=== PATIENT | male | born 1955 | race Caucasian/White ===

== ENCOUNTER 2017-06-16 09:50 | Emergency (ER) | payer OTHER ==
[~2017-06-16] VITALS: Ht 190.5 cm; Wt 129.3 kg
[~2017-06-16 09:50] MED LIST: BYDUREON2 MG SQ; CARVEDILOL12.5 MG PO; COREG25 MG PO; INVOKANA100 MG PO; KEPPRA 500 MG500 M2 PO; LISINOPRIL10 MG PO; LIVALO2 MG PO; METFORMIN HCL500 MG PO; MIDODRINE HCL 55 M1 PO; NEURONTIN 300300 M1 PO
[2017-06-16] MEDS ORDERED: CRESTOR5 MG PO (10:01)
[2017-06-16] MEDS ORDERED: TRULICITY0.75 MG/0. SUBQ (10:01)
[2017-06-16] MEDS ORDERED: MOBIC15 MG PO (10:02)
[2017-06-16] MEDS ORDERED: FARXIGA5 MG PO (10:02)
[2017-06-16] MEDS ORDERED: CYMBALTA30 MG PO (10:03)
[2017-06-16 10:45] LABS: HEMATOCRIT 46.8 % (42.0-52.0); MCH 32.5 pg (26.0-34.0); MCHC 34.3 g/dL (28.0-37.0); MCV 94.9 fL (80.0-100.0); RBC 4.93 mil/uL (4.50-6.00); RDW 13.3 % (10.5-14.5)
[2017-06-16 10:47] LABS: CALCIUM 9.3 mg/dL (8.5-10.1); CREATININE 0.9 mg/dL (0.7-1.3); POTASSIUM 4.4 mmol/L (3.5-5.1)
[2017-06-16 10:53] LABS: ALBUMIN 4.1 g/dL (3.4-5.0); TOTAL BILIRUBIN 0.6 mg/dL (<0.1-1.0); TOTAL PROTEIN 7.7 g/dL (6.4-8.2)
[2017-06-16 12:12] LABS: URINE BILIRUBIN NEGATIVE (Negative); URINE BLOOD NEGATIVE (Negative); URINE CLARITY CLEAR; URINE COLOR YELLOW; URINE GLUCOSE-RANDOM* 3+ (Negative); URINE KETONES NEGATIVE (Negative); URINE LEUKOCYTES-REFLEX NEGATIVE (Negative); URINE NITRITE-REFLEX NEGATIVE (Negative); URINE PROTEIN (DIPSTICK) NEGATIVE (Negative); URINE UROBILINOGEN 0.2 E.U./dl (0.2-1.0)
[2017-06-16 12:49] VITALS: BP 101/63
== END 2017-06-16 12:55 | disposition home or self-care (01) ==
LOC: ER 09:50
PROVIDERS: Emergency Medicine
DX: R10.9 Unspecified abdominal pain (principal); M54.5 Low back pain; E11.9 Type 2 diabetes mellitus without complications; G47.30 Sleep apnea, unspecified; Z87.442 Personal history of urinary calculi; Z91.040 Latex allergy status; Z88.8 Allergy status to other drugs, medicaments and biological substances

== ENCOUNTER 2018-04-17 18:55 | Emergency (ER) | payer OTHER ==
[~2018-04-17] VITALS: Ht 190.5 cm; Wt 127.0 kg
[~2018-04-17 18:55] MED LIST changes: +CRESTOR5 MG PO; +CYMBALTA30 MG PO; +FARXIGA5 MG PO; +MOBIC15 MG PO; +TRULICITY0.75 MG/0. SUBQ
[2018-04-17] MEDS ORDERED: METFORMIN HCL1000 M1 PO (19:11)
[2018-04-17] MEDS ORDERED: NORCO 5-325 TA1 EACH PO (20:02)
[2018-04-17 20:10] VITALS: BP 127/79
== END 2018-04-17 20:10 | disposition home or self-care (01) ==
LOC: ER 18:55
DX: S92.415A Nondisplaced fracture of proximal phalanx of left great toe, initial encounter for closed fracture (principal); S92.511A Displaced fracture of proximal phalanx of right lesser toe(s), initial encounter for closed fracture; E11.9 Type 2 diabetes mellitus without complications; G47.30 Sleep apnea, unspecified; Z91.041 Radiographic dye allergy status; Z87.891 Personal history of nicotine dependence; Z87.442 Personal history of urinary calculi; Z88.8 Allergy status to other drugs, medicaments and biological substances; W10.8XXA Fall (on) (from) other stairs and steps, initial encounter; Y93.89 Activity, other specified; Y92.098 Other place in other non-institutional residence as the place of occurrence of the external cause; Y99.8 Other external cause status

== ENCOUNTER → 2018-08-04 | Outpatient (CLI) | payer OTHER ==
[~2018-08-04] MED LIST changes: +METFORMIN HCL1000 M1 PO; +NORCO 5-325 TA1 EACH PO
== END ==
LOC: HYPER 08-02 08:15
DX: E11.621 Type 2 diabetes mellitus with foot ulcer (principal); L97.511 Non-pressure chronic ulcer of other part of right foot limited to breakdown of skin; E11.43 Type 2 diabetes mellitus with diabetic autonomic (poly)neuropathy; E78.5 Hyperlipidemia, unspecified; G47.33 Obstructive sleep apnea (adult) (pediatric); I10 Essential (primary) hypertension; I42.8 Other cardiomyopathies; M47.816 Spondylosis without myelopathy or radiculopathy, lumbar region; Z87.891 Personal history of nicotine dependence; Z79.84 Long term (current) use of oral hypoglycemic drugs; Z95.810 Presence of automatic (implantable) cardiac defibrillator

== ENCOUNTER → 2018-08-11 | Outpatient (CLI) | payer OTHER | LOC: HYPER 06:47 | DX: E11.621 Type 2 diabetes mellitus with foot ulcer (principal); L97.511 Non-pressure chronic ulcer of other part of right foot limited to breakdown of skin; E11.43 Type 2 diabetes mellitus with diabetic autonomic (poly)neuropathy; E78.5 Hyperlipidemia, unspecified; G47.33 Obstructive sleep apnea (adult) (pediatric); I10 Essential (primary) hypertension; I42.8 Other cardiomyopathies; M47.816 Spondylosis without myelopathy or radiculopathy, lumbar region; Z95.810 Presence of automatic (implantable) cardiac defibrillator; Z79.84 Long term (current) use of oral hypoglycemic drugs; Z87.891 Personal history of nicotine dependence ==

== ENCOUNTER → 2018-08-25 | Outpatient (CLI) | payer OTHER | LOC: HYPER 06:58 | DX: E11.621 Type 2 diabetes mellitus with foot ulcer (principal); L97.511 Non-pressure chronic ulcer of other part of right foot limited to breakdown of skin; E11.43 Type 2 diabetes mellitus with diabetic autonomic (poly)neuropathy; E78.5 Hyperlipidemia, unspecified; I10 Essential (primary) hypertension; I42.8 Other cardiomyopathies; G47.33 Obstructive sleep apnea (adult) (pediatric); M47.816 Spondylosis without myelopathy or radiculopathy, lumbar region; Z95.810 Presence of automatic (implantable) cardiac defibrillator; Z87.891 Personal history of nicotine dependence; Z79.84 Long term (current) use of oral hypoglycemic drugs ==

== ENCOUNTER → 2018-09-13 | Outpatient (CLI) | payer OTHER | LOC: HYPER 06:43 | DX: E11.621 Type 2 diabetes mellitus with foot ulcer (principal); L97.511 Non-pressure chronic ulcer of other part of right foot limited to breakdown of skin; E11.43 Type 2 diabetes mellitus with diabetic autonomic (poly)neuropathy; E78.5 Hyperlipidemia, unspecified; G47.33 Obstructive sleep apnea (adult) (pediatric); I10 Essential (primary) hypertension; I42.8 Other cardiomyopathies; M47.816 Spondylosis without myelopathy or radiculopathy, lumbar region; Z95.810 Presence of automatic (implantable) cardiac defibrillator; Z79.84 Long term (current) use of oral hypoglycemic drugs; Z87.891 Personal history of nicotine dependence ==

== ENCOUNTER → 2019-12-02 | Outpatient (CLI) | payer OTHER ==
[~2019-12-02] MED LIST changes: +CYMBALTA60 MG PO; +MULTIVITAMINS1 EAC7 PO
== END ==
LOC: LAB 08:00
PROVIDERS: ATTEND Student in an Organized Health Care Education/Training Program
DX: Z01.812 Encounter for preprocedural laboratory examination (principal); Z11.59 Encounter for screening for other viral diseases

== ENCOUNTER → 2019-12-07 | Outpatient (CLI) | payer OTHER ==
[~2019-12-07] VITALS: Ht 190.5 cm; Wt 121.6 kg
--- NOTE | 2019-12-09 18:06 | PATH ---
[facility] [place] [address] PATHOLOGY RPT PROCEDURE Name: ANAHI MARAVILLA Room #: REG [facility].#: [id number] Admission: 12/07/19 Date of : 53 Discharge: Report #: [id number] Path Case #: [id number] [facility] Accession Number: [id number] . 01 Material submitted: . PART A: colon - POLYP AT DESCENDING COLON. Modifiers: descending PART B: colon - POLYP AT SIGMOID COLON. Modifiers: sigmoid . 01 Clinical history: . None provided. . 02 Diagnosis: A. Polyp, at descending colon, endoscopic biopsy: - Tubular adenoma. - Negative for high-grade dysplasia. . B. Polyp, at sigmoid colon, endoscopic biopsy: - Hyperplastic polyp. - Negative for dysplasia. (IUV:tyra; 12/09/2019) QMS 12/09/2019 1256 Local . 02 Electronically signed: . Patricia De La Rosa MD, Pathologist NPI- [id number] . 01 Gross description: . A. Received in formalin labeled "Anahi Maravilla, polyp at descending colon" is a 0.6 x 0.4 x 0.1 cm aggregate of patricio-brown soft tissue fragments. The specimen is submitted entirely in A1. . B. Received in formalin labeled "Anahi Maravilla, polyp at sigmoid colon" is a 0.8 x 0.5 x 0.1 cm aggregate of patricio-brown soft tissue fragments. The specimen is submitted entirely in B1. ([facility]; 12/08/2019) [facility] 12/08/2019 1510 Local . 02 Pathologist provided ICD-10: D12.4, K63.5 . 02 CPT . 358698, 284370 Specimen Comment: A courtesy copy of this report has been sent to [phone] Specimen Comment: [phone] Specimen Comment: Report sent to / DR PATINO Performed at: [address] [place] [address] PATHOLOGY RPT PROCEDURE Name: ANAHI MARAVILLA Room #: REG [facility] Farrah#: [id number] Admission: 12/07/19 Date of : 53 Discharge: Report #: [id number] Path Case #: [id number] [address] [facility] [address], [place] [id number] MD Fausto Weeks MD Phone: [phone] Performed at: [address] [id number] MD Patricia De La Rosa MD Phone: [phone]
--- NOTE | 2019-12-14 10:42 | P ---
[facility] [place] [address] PROCEDURE REPORT Name: ANAHI CAMERON [id number] Admission: 12/07/19 Attend Phys: Flaco Posada Discharge: Date of : 53 Report #: [id number] THIS REPORT FOR: cc: Bette Sosa MD, Julie MD McElhinney, Christian C. MD ~ CC: Flaco Sosa MD DATE OF SERVICE: 12/07/2019 PROCEDURE PERFORMED: Colonoscopy with biopsies. HISTORY OF PRESENT ILLNESS: The patient is a 64-year-old male with a history of colon polyps 5 years ago, here for routine followup. Denies any symptoms. No family history of colon cancer. DESCRIPTION OF PROCEDURE: The risks and benefits of the procedure were explained to the patient, those risks including but not limited to bleeding, perforation, the risk of sedation. He understood these risks and gave informed consent. Sedation was given using propofol per anesthesia. Next, a digital rectal exam was initially performed, which was normal. Next, using a standard Olympus colonoscope, the scope was placed in the patient's anus and advanced under direct vision to the cecum. The overall prep was good. The cecum and ileocecal valve were normal in appearance. The ascending and transverse colon were normal. In the descending colon, a 4 mm sessile polyp was noted. This was removed with cold forceps, otherwise normal. In the sigmoid colon, a few small diverticula were noted. No evidence of inflammation. Also, a 3 mm sessile polyp noted and removed with cold forceps. The rectal mucosa was normal. On retroflexion, small nonbleeding internal hemorrhoids were noted. The scope was then withdrawn and the procedure terminated. The patient tolerated the procedure well. IMPRESSION: 1. Two small colonic polyps. 2. A few small diverticula in the sigmoid colon. 3. Small internal hemorrhoids. 4. Otherwise, normal colonoscopy. RECOMMENDATIONS: 1. Await biopsy results. 2. If polyps are hyperplastic, repeat in 10 years; if adenomatous polyps, repeat in [address] [address] PROCEDURE REPORT Name: ANAHI CAMERON Room #: REG [facility] Yan#: [id number] Admission: 12/07/19 Attend Phys: Flaco Posada Discharge: Date of : 53 Report #: [id number] Thank you for allowing me to participate in his care. <ELECTRONICALLY SIGNED> By: Flaco Mendez MD 12/14/19 1042 0935 [id number] Flaco Mendez MD /nt
== END | disposition home or self-care (01) ==
LOC: GI 07:19
PROVIDERS: ATTEND Specialist
DX: Z12.11 Encounter for screening for malignant neoplasm of colon (principal); Z86.010 Personal history of colon polyps; D12.4 Benign neoplasm of descending colon; K57.30 Diverticulosis of large intestine without perforation or abscess without bleeding; K64.8 Other hemorrhoids; I10 Essential (primary) hypertension; E11.9 Type 2 diabetes mellitus without complications; E78.5 Hyperlipidemia, unspecified; G47.30 Sleep apnea, unspecified; F32.9 Major depressive disorder, single episode, unspecified; Z98.890 Other specified postprocedural states; Z79.899 Other long term (current) drug therapy; Z87.442 Personal history of urinary calculi; Z91.041 Radiographic dye allergy status; Z88.8 Allergy status to other drugs, medicaments and biological substances
CPT/HCPCS: 62110; 62900